=== PATIENT | female | born 1970 | race Caucasian/White ===

== ENCOUNTER 2017-03-26 12:23 | Emergency (ER) | payer OTHER ==
[~2017-03-26] VITALS: Ht 160 cm; Wt 60.0 kg
[~2017-03-26 12:23] MED LIST: ADDE30XR PO; ALBU1AER INH; BENZ100 PO; CETI10 PO; ELMI100C PO; GABA800T PO; LEVE750T8 PO; LEVO50TA4 PO; MACR100C PO; MONT10TA2 PO; NITR1CAP37 PO; PREM0.622; RANI150T PO; ZITH250T PO; omeprazole; verapamil
[2017-03-26 12:25] VITALS: BP 123/87; PULSE 78; RESP 20; TEMP 98.4; O2SAT 100
--- NOTE | 2017-03-26 12:31 | PD ---
Physical Exam Date Seen by Provider: Mar 26, 2017 Time Seen by Provider: 12:29 Narrative 47 yo female comes here for evaluation of eye blurryness with crusties. Woke up like this this am. No injuries. Has a rash to her back as well. Called PCP who told her to come here. No pain. Denies any other medical problems at this time. Vitals sign stable. Patient awaiting bed placement Data Data Last Documented VS Vital Signs Date Time Temp Pulse Resp B/P Pulse Ox O2 Delivery O2 Flow Rate FiO2 03/26/17 12:25 98.4 78 20 123/87 100 Room Air [facility] Medical Record Reviewed: Yes Supervised Visit with MARTHA: No Luis Sahu Mar 26, 2017 12:31
[2017-03-26] MEDS ORDERED: KEPP750T PO (12:48)
[2017-03-26] MEDS ORDERED: VERA120T3 PO (12:48)
[2017-03-26] MEDS ORDERED: ZYRT10CA PO (12:48)
[2017-03-26] MEDS ORDERED: ADDE30TA PO (12:48)
[2017-03-26] MEDS ORDERED: MONT10TA2 PO (12:48)
[2017-03-26] MEDS ORDERED: RANI150T PO (12:48)
[2017-03-26] MEDS ORDERED: ALBUAER3 INH (12:48)
[2017-03-26] MEDS ORDERED: GABA800T PO (12:48)
[2017-03-26] MEDS ORDERED: OMEP10CA PO (12:48)
[2017-03-26] MEDS ORDERED: ELMI100C PO (12:48)
[2017-03-26] MEDS ORDERED: ESTR.625 PO (12:48)
[2017-03-26] MEDS ORDERED: OMEP20CA2 (12:48)
[2017-03-26] MEDS ORDERED: LEVO50TA4 PO (12:48)
--- NOTE | 2017-03-26 12:48 | PD ---
HPI Chief Complaint: Eye Problems/Injury Time Seen by Provider: 12:45 Travel History International Travel<30 days: No Contact w/Intl Traveler<30days: No Traveled to known affect area: No History of Present Illness HPI 47-year-old female presents to emergency department with 2 complaints. Her first complaint is waking up with red itchy eyes this morning. She said they were draining a clear goopy drainage. Denies foreign body, trauma to the eyes. Denies eye pain. Says her vision is blurry. Wears corrective lenses and contacts. Said she called her primary care provider who is in [place] and he told her to come to the emergency department for antibiotics for her eyes. Denies fever, chills, nausea, vomiting. Reports using [id number] eyedrops with some relief of symptoms; reports they're still itchy. She is also complaining of an itchy rash to her lower back since Wednesday. Denies new lotions, soaps, detergents, perfumes, medications, foods, environmental exposures. Says her friend has conjunctivitis in his eyes. No one else with similar rash. Denies rash anywhere else on the body. Allergies to Demerol, morphine, sulfa. No other medical complaints. No other modifying factors or associated signs and symptoms. PFSH Past Medical History Cardiovascular Problems: Yes (HTN) Thyroid Disease: Yes ?: Not Menopausal: Yes Past Surgical History Hysterectomy: Yes Social History Alcohol Use: Yes (SOMETIMES) Tobacco Use: Yes Substance Use: No Allergies-Medications (Allergen,Severity, Reaction): Coded Allergies: Demerol (Verified Allergy, Severe, Rash, 03/26/17) Morphine (Verified Allergy, Severe, Rash, 03/26/17) Sulfa (Verified Allergy, Severe, Rash, 03/26/17) Reported Meds & Prescriptions Reported Meds & Active Scripts Active Erythromycin Opth Oint 5 Mg/Gm Oint 1 Applic EACH EYE QID 7 Days Proair Hfa (Albuterol Sulfate) 8.5 Gm Aero 2 Puff INH Q4H PRN * SHAKE WELL BEFORE USE * Elmiron (Pentosan Polysulfate Sodium) 100 Mg Cap 100 Mg PO TID Elmiron (Pentosan Polysulfate Sodium) 100 Mg Cap 100 Mg PO TID Reported Verapamil (Verapamil HCl) 120 Mg Tab 360 Mg PO DAILY Omeprazole 20 Mg Cap BID Omeprazole 10 Mg Cap 10 Mg PO BID Ranitidine (Ranitidine HCl) 150 Mg Tab 150 Mg PO DAILY Elmiron (Pentosan Polysulfate Sodium) 100 Mg Cap 100 Mg PO TID Singulair (Montelukast Sodium) 10 Mg Tab 10 Mg PO HS Levothyroxine (Levothyroxine Sodium) 50 Mcg Tab 50 Mcg PO DAILY Keppra (Levetiracetam) 750 Mg Tab 750 Mg PO BID Gabapentin 800 Mg Tab 800 Mg PO TID Premarin (Estrogens Conjugated) 0.625 Mg Tab 0.625 Mg PO DAILY Zyrtec Allergy (Cetirizine HCl) 10 Mg Cap 10 Mg PO DAILY Proair Hfa 8.5 GM Inh (Albuterol Sulfate) 90 Mcg/Act Aer 2 Puff INH Q4-6H PRN 108 mcg/actuation Adderall (Amphetamine-Dextroamphetamine) 30 Mg Tab 30 Mg PO DAILY Avoid late evening doses. Space doses at least 4 to 6 hours if more than once/day dosing. Gabapentin 800 Mg Tab 800 Mg PO TID [verapamil] 360 Mg DAILY Ranitidine 150 mg (Ranitidine HCl) 150 Mg Tab 1 Tab PO DAILY [omeprazole] 30 BID Levothyroxine 50 mcg (Levothyroxine Sodium) 50 Mcg Tab 50 Mcg PO DAILY Premarin (Estrogens Conjugated) 0.625 Mg/Gm Cre DAILY Adderall XR 30 mg (Amphetamine/Dextroamphetamine) 30 Mg Cap 30 Mg PO DAILY Zyrtec 10 Mg Tab (Cetirizine HCl) 10 Mg Tab 10 Mg PO DAILY Singulair (Montelukast Sodium) 10 Mg Tab 10 Mg PO DAILY Keppra (Levetriacetam) 750 Mg Tab 750 Mg PO BID Review of Systems Except as stated in HPI: all other systems reviewed are Neg Physical Exam Narrative GENERAL: Well-nourished, well-developed female patient, in no acute distress; afebrile, nontoxic-appearing SKIN: Warm and dry. Erythremic pimple-like rash to the lower back; no signs of cellulitic process. HEAD: Atraumatic. Normocephalic. EYES: Pupils equal and round at 3 mm with brisk reaction. PERRLA. EOMI. bilateral lid eversion with no foreign body noted. Bilateral eye without scleral erythema or lid edema. No orbital tenderness, erythema or cellulitis. Bilateral eye without photophobia. No consensual photophobia. No scleral icterus. No drainage. ENT: Mucosa pink and moist. Airway patent. NECK: Trachea midline. CARDIOVASCULAR: Regular rate. RESPIRATORY: No accessory muscle use. GASTROINTESTINAL: Flat. NEUROLOGICAL: Awake and alert. Oriented 3. No obvious cranial nerve deficits. Motor grossly within normal limits. Normal speech. PSYCHIATRIC: Appropriate mood and affect; insight and judgment normal. Data Data Last Documented VS Vital Signs Date Time Temp Pulse Resp B/P Pulse Ox O2 Delivery O2 Flow Rate FiO2 03/26/17 12:25 98.4 78 20 123/87 100 Room Air MDM Medical Decision Making Medical Screen Exam Complete: Yes Emergency Medical Condition: Yes Medical Record Reviewed: Yes Differential Diagnosis Allergic conjunctivitis, bacterial conjunctivitis, contact dermatitis, scabies Narrative Course 47-year-old female with itchy eyes; Her eye exam is unremarkable. She has an erythemic itchy rash to her lower back that is nonspecific. No signs of cellulitis. Patient is afebrile and nontoxic-appearing. Denies fever, vomiting. The patient is requesting antibiotics for her eyes. Allergies to sulfa. Erythromycin prescribed for home. Patient verbalizes understanding and agreement with treatment plan. Patient is medically cleared and stable for discharge. Discussed reasons to return to the emergency department. Instructed patient to follow up with primary care provider. Patient agrees with treatment plan. The patients vital signs are stable and the patient is stable for outpatient follow-up and treatment. Patient discharged home, stable and in no acute distress. Diagnosis Primary Impression: Itchy eyes Additional Impression: Rash and nonspecific skin eruption Referrals: Primary Care Physician Patient Instructions: Acute Rash (ED), Conjunctivitis (ED), General Instructions Departure Forms: Tests/Procedures, Work Release Enter return to work date: Mar 27, 2017 Additional Instructions: Apply warm or cool compresses to both eyes for a few minutes several times daily to minimize irritation Avoid triggers, such as allergens, that may irritate your eyes Wash your hands frequently Do not share washcloths, towels, pillows, or any other material that has touched your eyes with any other household members Follow-up with your primary care provider Follow-up with ophthalmology as needed Return to the emergency department immediately with worsening of symptoms Iyqj-[id number] topicals to reduce itch Benadryl as directed and as needed to reduce itch Follow-up with your primary care provider Follow-up with dermatology as needed Return to the emergency department immediately, particularly if difficulty breathing, swelling of the airway Med/Other Pt SpecificInfo: Prescription(s) given Scripts Erythromycin Opth Oint 5 Mg/Gm Oint1 Applic EACH EYE QID 7 Days Ref 0 Prov:Tami Blair 03/26/17 Disposition: 01 DISCHARGE HOME Condition: Stable Tami Blair Mar 26, 2017 12:48
[2017-03-26] MEDS ORDERED: ERYTOIN10 EACH EYE (12:49)
[2017-05-27] MEDS ORDERED: ELMI100C PO (16:23)
[2017-05-31] MEDS ORDERED: ELMI100C PO (09:12)
== END 2017-03-26 13:16 | disposition home or self-care (01) ==
LOC: NEPK 12:23
DX: H57.8 Other specified disorders of eye and adnexa (principal); R21 Rash and other nonspecific skin eruption; H53.8 Other visual disturbances; I10 Essential (primary) hypertension; E07.9 Disorder of thyroid, unspecified; Z72.0 Tobacco use
CPT/HCPCS: 99282

== ENCOUNTER 2017-11-12 02:48 | Emergency (ER) | payer OTHER ==
[~2017-11-12] VITALS: Ht 160 cm; Wt 65.0 kg
[~2017-11-12 02:48] MED LIST changes: +ADDE30TA PO; +ALBUAER3 INH; -BENZ100 PO; +ERYTOIN10 EACH EYE; +ESTR.625 PO; +KEPP750T PO; -MACR100C PO; -NITR1CAP37 PO; +OMEP20CA2; +VERA120T3 PO; -ZITH250T PO; +ZYRT10CA PO; -omeprazole; -verapamil
[2017-11-12 02:51] VITALS: BP 142/88; PULSE 90; RESP 15; TEMP 99.1; O2SAT 100
[2017-11-12 04:26] LABS: BACTERIA, URINE RARE /hpf; BILIRUBIN, URINE NEG (NEG); BLOOD, URINE MOD (NEG); GLUCOSE,URINE NEG (NEG); KETONE, URINE NEG (NEG); MUCUS URINE FEW /lpf (OCC); NITRITE,URINE NEG (NEG); PH, URINE 5.5 (5.0-8.5); RENAL EPITHELIAL CELLS <1 /hpf; URINE COLOR LIGHT-YELLOW (YELLW/STRAW); URINE LEUKOCYTE ESTERASE LARGE (NEG); WHITE BLOOD CELL CLUMPS OCC
[2017-11-12] MEDS ORDERED: PHENAZOPYRIDINE HCL 200 MG TAB PO ONE (05:00)
[2017-11-12] MEDS ORDERED: LEVOFLOXACIN 750 MG TAB PO ONE (05:00)
[2017-11-12] MEDS ORDERED: ONDANSETRON ODT 4 MG TAB PO ONE (05:00)
[2017-11-12] MEDS ORDERED: LEVA500T33 PO (05:24)
[2017-11-12] MEDS ORDERED: PHEN0.4T PO (05:24)
[2017-11-12] MEDS ORDERED: ZOFR4TAB3 SL (05:25)
--- NOTE | 2017-11-12 05:25 | PD ---
HPI Chief Complaint: Complaint Time Seen by Provider: 03:03 Travel History International Travel<30 days: No Contact w/Intl Traveler<30days: No Traveled to known affect area: No History of Present Illness HPI Patient is 47-year-old female has a history of UTIs last few days has had severe burning pain when she urinates and pressure suprapubically. She has not taken anything for it she is on a medication daily for chronic cystitis. Dr. Bowers's her urologist she was there about 2 weeks ago told him she thought she had a UTI but he did not prescribe antibiotics because currently maybe a culture did not grow any bacteria. No she is here that she has UTI she said she saw bright red blood in the urine. She drank cranberry juice. She comes to our ER she says it's not as cloudy but not bloody. UA is sent patient is afebrile and does not appear toxic PFSH Past Medical History ADHD: Yes Asthma: Yes Heart Rhythm Problems: Yes (MURMUR) Cardiovascular Problems: Yes (HTN) Diminished Hearing: No Gastrointestinal Disorders: Yes (GERD, IBS) GERD: Yes Genitourinary: Yes Thyroid Disease: Yes (HYPO) Influenza Vaccination: Yes ?: Not Menopausal: Yes Past Surgical History Abdominal Surgery: Yes (LAPOROSCOPY) Section: Yes Hysterectomy: Yes Oral Surgery: Yes Social History Alcohol Use: Yes Tobacco Use: Yes (CHEW, CIGARS) Substance Use: No Allergies-Medications (Allergen,Severity, Reaction): Coded Allergies: Sulfa (Sulfonamide Antibiotics) (Verified Allergy, Severe, Rash, 11/12/17) meperidine (Verified Allergy, Severe, Rash, 11/12/17) morphine (Verified Allergy, Severe, Rash, 11/12/17) Reported Meds & Prescriptions Reported Meds & Active Scripts Active Elmiron (Pentosan Polysulfate Sodium) 100 Mg Cap 100 Mg PO TID Erythromycin Opth Oint 5 Mg/Gm Oint 1 Applic EACH EYE QID 7 Days Proair Hfa (Albuterol Sulfate) 8.5 Gm Aero 2 Puff INH Q4H PRN * SHAKE WELL BEFORE USE * Reported Verapamil (Verapamil HCl) 120 Mg Tab 360 Mg PO DAILY Omeprazole 20 Mg Cap BID Ranitidine (Ranitidine HCl) 150 Mg Tab 150 Mg PO DAILY Elmiron (Pentosan Polysulfate Sodium) 100 Mg Cap 100 Mg PO TID Singulair (Montelukast Sodium) 10 Mg Tab 10 Mg PO HS Levothyroxine (Levothyroxine Sodium) 50 Mcg Tab 50 Mcg PO DAILY Keppra (Levetiracetam) 750 Mg Tab 750 Mg PO BID Gabapentin 800 Mg Tab 800 Mg PO TID Premarin (Estrogens Conjugated) 0.625 Mg Tab 0.625 Mg PO DAILY Zyrtec Allergy (Cetirizine HCl) 10 Mg Cap 10 Mg PO DAILY Proair Hfa 8.5 GM Inh (Albuterol Sulfate) 90 Mcg/Act Aer 2 Puff INH Q4-6H PRN 108 mcg/actuation Adderall (Amphetamine-Dextroamphetamine) 30 Mg Tab 30 Mg PO DAILY Avoid late evening doses. Space doses at least 4 to 6 hours if more than once/day dosing. Gabapentin 800 Mg Tab 800 Mg PO TID Ranitidine 150 mg (Ranitidine HCl) 150 Mg Tab 1 Tab PO DAILY Levothyroxine 50 mcg (Levothyroxine Sodium) 50 Mcg Tab 50 Mcg PO DAILY Premarin (Estrogens Conjugated) 0.625 Mg/Gm Cre DAILY Adderall XR 30 mg (Amphetamine/Dextroamphetamine) 30 Mg Cap 30 Mg PO DAILY Zyrtec 10 Mg Tab (Cetirizine HCl) 10 Mg Tab 10 Mg PO DAILY Singulair (Montelukast Sodium) 10 Mg Tab 10 Mg PO DAILY Keppra (Levetriacetam) 750 Mg Tab 750 Mg PO BID Physical Exam Narrative GENERAL: Nontoxic-appearing awake alert in no distress SKIN: Warm and dry. HEAD: Atraumatic. Normocephalic. EYES: Pupils equal and round. No scleral icterus. No injection or drainage. ENT: No nasal bleeding or discharge. Mucous membranes pink and moist. NECK: Trachea midline. No JVD. CARDIOVASCULAR: Regular rate and rhythm. RESPIRATORY: No accessory muscle use. Clear to auscultation. Breath sounds equal bilaterally. GASTROINTESTINAL: Abdomen positive suprapubic tenderness. Soft. Hepatic and splenic margins not palpable. MUSCULOSKELETAL: Extremities without clubbing, cyanosis, or edema. No obvious deformities. NEUROLOGICAL: Awake and alert. No obvious cranial nerve deficits. Motor grossly within normal limits. Five out of 5 muscle strength in the arms and legs. Normal speech. PSYCHIATRIC: Appropriate mood and affect; insight and judgment normal. Data Data Last Documented VS Vital Signs Date Time Temp Pulse Resp B/P (MAP) Pulse Ox O2 Delivery O2 Flow Rate FiO2 11/12/17 02:51 99.1 90 15 142/88 (106) 100 Room Air Orders Orders Urinalysis - C+S If Indicated (11/12/17 03:54) Urine Culture (11/12/17 03:55) Levofloxacin (Levaquin) (11/12/17 05:00) Phenazopyridine (Pyridium) (11/12/17 05:00) Ondansetron Odt (Zofran Odt) (11/12/17 05:00) Labs Laboratory Tests Test 11/12/17 03:55 Urine Color LIGHT-YELLOW Urine Turbidity HAZY Urine pH 5.5 Urine Specific [place] 1.006 Urine Protein 30 mg/dL Urine Glucose (UA) NEG mg/dL Urine Ketones NEG mg/dL Urine Occult Blood MOD Urine Nitrite NEG Urine Bilirubin NEG Urine Urobilinogen LESS THAN 2.0 MG/DL Urine Leukocyte Esterase LARGE Urine RBC 2 /hpf Urine WBC 170 /hpf Urine WBC Clumps OCC Urine Renal Epithelial Cells <1 /hpf Urine Bacteria RARE /hpf Urine Mucus FEW /lpf Microscopic Urinalysis Comment CULTURE INDICATED MDM Medical Decision Making Medical Screen Exam Complete: Yes Emergency Medical Condition: Yes Differential Diagnosis UTI versus cystitis versus chronic interstitial cystitis versus pyelonephritis versus renal kidney stone versus abdominal pain NOS versus PID Narrative Course UTI white blood cells and UA are 170 Levaquin by mouth Pyridium Zofran follow- up Dr. Bowers Diagnosis Primary Impression: UTI (urinary tract infection) Patient Instructions: General Instructions, Urinary Tract Infection in Women ( ED) Scripts Ondansetron Odt (Zofran Odt) 4 Mg Tab 4 MG SL Q12HR Y for Nausea/Vomiting, #20 TAB 0 Refills Prov: Reymundo Naidu MD 11/12/17 Phenazopyridine (Pyridium) 100 Mg Tab 100 MG PO Q8HR for Dysuria for 2 Days, TAB 0 Refills Prov: Reymundo Naidu MD 11/12/17 Levofloxacin (Levaquin) 500 Mg Tablet 500 MG PO DAILY for Infection, #7 TAB 0 Refills Prov: Reymundo Naidu MD 11/12/17 Disposition: 01 DISCHARGE HOME Condition: Good Reymundo Naidu MD Nov 12, 2017 05:25
[2017-11-12] MEDS ORDERED: IBUP-232 PO (05:27)
[2017-11-12] MEDS ORDERED: TRAM50TA PO (05:27)
== END 2017-11-12 05:35 | disposition home or self-care (01) ==
LOC: NEPE 02:48
DX: N39.0 Urinary tract infection, site not specified (principal); B96.20 Unspecified Escherichia coli [E. coli] as the cause of diseases classified elsewhere; F90.9 Attention-deficit hyperactivity disorder, unspecified type; J45.909 Unspecified asthma, uncomplicated; I10 Essential (primary) hypertension; K21.9 Gastro-esophageal reflux disease without esophagitis; E03.9 Hypothyroidism, unspecified; F17.220 Nicotine dependence, chewing tobacco, uncomplicated; F17.290 Nicotine dependence, other tobacco product, uncomplicated
CPT/HCPCS: 81001; 87077; 87086; 87186; 99284